=== PATIENT | female | born 1995 | race Asian ===

== ENCOUNTER 2017-06-18 20:32 | Emergency (ER) | payer OTHER ==
--- NOTE | 2017-06-18 21:54 | RAD ---
Indication: Swallowed dental wire. Single view of the abdomen demonstrates the dental wire in the left upper quadrant inferior to the stomach. This is presumably in small bowel. IMPRESSION: Linear radiopaque object is noted in the left upper quadrant presumably within the small intestine.
--- NOTE | 2017-06-18 22:02 | ED ---
GI/ HPI - HPI Summary HPI Summary: 21F presents with foreign body in GI tract today. She swallowed a dental wire. She had a permanent retainer type device placed a month ago that had cement and wire involved. The cement broke down and the wire fell out and she swallowed it. She denies any abdominal pain, n/v/d/c, or blood in her stool. She was seen at [facility] and xray taken and called GI specialist said come to ED to have it removed. - History of Current Complaint Chief Complaint: EDForeignBodyEsophag Time Seen by Provider: 06/18/17 21:27 Stated Complaint: SWALLOWED ORTHODONIC WIRE Pain Intensity: 0 - Allergy/Home Medications Allergies/Adverse Reactions: Allergies Allergy/AdvReac Type Severity Reaction Status Date / Time No Known Allergies Allergy Verified 06/18/17 20:40 PMH/Surg Hx/FS Hx/Imm Hx Endocrine/Hematology History: Denies: Hx Anticoagulant Therapy Cardiovascular History: Denies: Hx Hypertension Infectious Disease History: No Infectious Disease History: Reports: Traveled Outside the [place] in Last 30 Days - [place] - Family History Known Family History: Positive: Hypertension - Social History Alcohol Use: Occasionally Substance Use Type: Reports: None Smoking Status (MU): Never Smoked Tobacco Review of Systems Negative: Fever Negative: Chest Pain Negative: Shortness Of Breath Positive: Other - foreign body ingestion. Negative: Abdominal Pain, Vomiting, Diarrhea, Nausea All Other Systems Reviewed And Are Negative: Yes Physical Exam Triage Information Reviewed: Yes Vital Signs On Initial Exam: Initial Vitals Temp Pulse Resp Pulse Ox 99.1 F 66 14 98 06/18/17 20:41 06/18/17 20:41 06/18/17 20:41 06/18/17 20:41 Vital Signs Reviewed: Yes Appearance: Positive: Well-Appearing Skin: Positive: Warm, Dry Head/Face: Positive: Normal Head/Face Inspection Eyes: Positive: Normal, Conjunctiva Clear Respiratory/Lung Sounds: Positive: Clear to Auscultation, Breath Sounds Present Cardiovascular: Positive: Normal, RRR Abdomen Description: Positive: Nontender, Soft Bowel Sounds: Positive: Present Diagnostics - Vital Signs Vital Signs Temp Pulse Resp BP Pulse Ox 06/18/17 20:43 99.1 F 80 14 113/70 100 06/18/17 20:41 99.1 F 66 14 98 - Laboratory Lab Statement: Any lab studies that have been ordered have been reviewed, and results considered in the medical decision making process. GIGU Course/Dx - Course Course Of Treatment: 21F presents with foreign body in GI tract today. She swallowed a dental wire. She had a permanent retainer type device placed a month ago that had cement and wire involved. The cement broke down and the wire fell out and she swallowed it. She denies any abdominal pain, n/v/d/c, or blood in her stool. She was seen at [facility] and xray taken and called GI specialist said come to ED to have it removed. on exam abdomen soft nonteder. xray shows in small intestine. spoke with dr mock recommended by d/c home and follow up xray on wednesday but due to holiday will have to be on Wednesday. patient understands and agrees with plan. - Diagnoses Differential Diagnoses - Female: Other - foreign body Provider Diagnoses: Foreign body, swallowed - Physician Notifications Discussed Care Of Patient With: dr mock Time Discussed With Above Provider: 22:01 - send home repeat xray on wednesday Discharge - Discharge Plan Condition: Good Disposition: HOME Patient Education Materials: Foreign Body Ingestion (ED) Referrals: [facility] [Primary Care Provider] - Shaan Hutton MD [Medical Doctor] - Additional Instructions: Get repeat xray on Wednesday Take ibuprofen or Tylenol for pain Follow up with GI Return to ED if develop any bloody stool or any new or worsening symptoms
[2017-06-18 22:31] VITALS: BP 115/71
== END 2017-06-18 22:30 | disposition home or self-care (01) ==
LOC: ED 20:32
DX: T18.9XXA Foreign body of alimentary tract, part unspecified, initial encounter (principal); X58.XXXA Exposure to other specified factors, initial encounter; Y93.9 Activity, unspecified; Y92.9 Unspecified place or not applicable
CPT/HCPCS: 74000; 99282